=== PATIENT | female | born 1990 | race Caucasian/White ===

== ENCOUNTER → 2018-11-12 | Outpatient (CLI) | payer OTHER ==
[~2018-11-12] MED LIST: IBUP-1222 PO; PREN1TAB60 PO
== END | disposition home or self-care (01) ==
LOC: CFH 16:28
PROVIDERS: ATTEND Family Medicine
DX: M47.817 Spondylosis without myelopathy or radiculopathy, lumbosacral region (principal); M51.37 Other intervertebral disc degeneration, lumbosacral region
CPT/HCPCS: 72072; 72100

== ENCOUNTER → 2018-12-02 | Outpatient (CLI) | payer OTHER | END | disposition home or self-care (01) | LOC: CFH 12:59 | PROVIDERS: ATTEND Family Medicine | DX: N60.01 Solitary cyst of right breast (principal) | CPT/HCPCS: 76642; 77066 ==

== ENCOUNTER 2021-02-11 00:15 | Outpatient (CLI) | payer OTHER ==
[~2021-02-11] VITALS: Ht 154.9 cm; Wt 72.0 kg
[2021-02-11 00:52] VITALS: BP 112/68
== END 2021-02-11 02:14 | disposition home or self-care (01) ==
LOC: LDOP 00:15
PROVIDERS: ATTEND Obstetrics & Gynecology
DX: O42.92 Full-term premature rupture of membranes, unspecified as to length of time between rupture and onset of labor (principal); Z3A.37 37 weeks gestation of pregnancy
CPT/HCPCS: 59025; 84112; 89060; Q0114